=== PATIENT | female | born 1955 | race Caucasian/White ===

== ENCOUNTER → 2017-09-14 | Emergency (ER) | payer OTHER, MEDICARE ==
[~2017-09-14] VITALS: Ht 160 cm; Wt 78.9 kg
[~2017-09-14] MED LIST: ACETAMINOPHEN &1 TA1 PO; AMLODIPINE5 M1 PO; ASPIRIN 81MG TA81 MG PO; ATENOLOL50 MG PO; ATIVAN0.5 MG PO; ATORVASTATIN CA20 M1 PO; BENADRYL 50MG C50 MG PO; CALCIUM 600600 MG PO; CORGARD 40MG TA40 MG PO; CRANBERRY PO; EQUATE ALLERGY; FLUOXETINE20 M2 PO; LEXAPRO 10 MG T10 MG PO; MEDROL 4MG. DOSE4 MG PO; MULTI VITAMINS1 TA1 PO; NATURAL FISH1000 MG PO; PRAVASTATIN SOD80 MG PO; TRAZODONE50 MG PO
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
--- OUTSIDE RECORDS SUMMARY | 2017-09-14 19:09 | External Medical Summary Rpt | CCD ---
Author Author SONIA Address Unknown Phone Purpose Continuity of Care Document - through 2016
--- OUTSIDE RECORDS SUMMARY | 2017-09-14 19:10 | External Medical Summary Rpt | CCD ---
Author Author , SONIA Organization [facility] Address Unknown Phone [email or web address] Immunization Name Date Rout CVX Reac Dose Comm Prov Is Faci e tion ent ider Refu lity Give sed n Infl 09-1 150 0.5 Hist LEX[facility] No LEXC uenz 9-20 mL oric ABEL ABEL a 16 al Quad Info Inj rmat ion - Sour ce Unsp ecif ied PPV2 03-1 33 0.5 Hist LEX[facility] No LEXC 3 4-20 mL oric ABEL ABEL 16 al Info rmat ion - Sour ce Unsp ecif ied Infl 09-1 0.5 Hist [facility] No LEXC uenz 4-20 mL oric ABEL ABEL a 15 al Quad Info rmat W/Pr ion es - Sour ce Unsp ecif ied Infl 12-0 150 0.5 Hist [facility]EXC No LEXC uenz 8-20 mL oric ABEL ABEL a 14 al Quad Info Inj rmat ion - Sour ce Unsp ecif ied Tdap 03-1 115 999 Hist [facility] No LEXC , 3-20 oric ABEL ABEL Adso 14 al rbed Info rmat ion - Sour ce Unsp ecif ied Td 04-1 9 999 Hist H149 No H149 (alverto 9-20 oric lt), 00 al Info adso rmat rbed ion - Sour ce Unsp ecif ied
--- OUTSIDE RECORDS SUMMARY | 2017-09-14 19:10 | External Medical Summary Rpt | CCD ---
Author Author , SONIA Organization [employer] Address Unknown Phone [email or web address] Immunization Name Date Rout CVX Reac Dose [...]
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
[2017-09-14 19:46] VITALS: BP 150/70
== END ==
LOC: ER 17:57
DX: S13.4XXA Sprain of ligaments of cervical spine, initial encounter (principal); S62.307A Unspecified fracture of fifth metacarpal bone, left hand, initial encounter for closed fracture; M54.5 Low back pain; V87.7XXA Person injured in collision between other specified motor vehicles (traffic), initial encounter; I10 Essential (primary) hypertension; E78.5 Hyperlipidemia, unspecified; Z79.899 Other long term (current) drug therapy